=== PATIENT | female | born 1945 | race African-American/Black ===

== ENCOUNTER 2018-10-08 01:11 | Inpatient (IN) ==
[2018-10-08] MEDS ORDERED: ONDANSETRON 4 MG/2 ML VIAL IV ONE (01:45)
[2018-10-08] MEDS ORDERED: SODIUM CHLORIDE 0.9% 1,000 ML IV STA (01:45)
[2018-10-08] MEDS ORDERED: ALBUTEROL/IPRATROPIUM 3 ML NEB RESP TX STA (01:45)
[2018-10-08] MEDS ORDERED: ALBUTEROL 2.5 MG/3 ML NEB RESP TX STA (01:45)
[2018-10-08] MEDS ORDERED: methylPREDNISolone SOD SUC 125 MG/2 ML VIAL IV STA (01:45)
[2018-10-08 01:55] LABS: Basophils % 0.4 % (0.0-0.8); Eosinophils # 0.1 10*3/uL (0.0-0.87); Eosinophils % 1.3 % (0.00-10.9); Hematocrit 43.1 VOL% (35.7-47.0); Hemoglobin 13.2 GM/DL (12.0-16.0); Immature Granulocytes % 0.2 %; Immature Granulocytes Absolute 0.01 #; Lymphocytes # 0.9 10*3/uL (1.4-4.0); Lymphocytes % 18.8 % (21.3-54.2); Mean Corpuscular HGB Conc 30.6 GM/DL (32-36); Mean Corpuscular Volume 86.7 FL (87-102); Mean Platelet Volume 10.2 FL (9.6-12.0); Monocytes % 13.4 % (1.7-12.7); Neutrophils % 65.9 % (38.7-73.9); Platelet Count 153 T/CUMM (130-400); Red Blood Count 4.97 MC/CUMM (3.8-5.5); Red Cell Distribution Width 12.5 % (9.3-17.3); White Blood Count 4.8 T/CUMM (4-12)
[2018-10-08 01:57] LABS: INR 0.9
[2018-10-08 02:20] LABS: Alanine Aminotransferase 23 U/L (13-56); Albumin 3.9 G/DL (3.4-5.0); Alkaline Phosphatase 67 U/L (45-117); Aspartate Amino Transferase 36 U/L (0-37); Bilirubin,Total < 0.39 MG/DL (0.2-1.0); Blood Urea Nitrogen 11 MG/DL (7-18); Calcium 8.5 MG/DL (8.5-10.1); Glucose 161 MG/DL (74-106); Osmolality,Calculated 274.8 MOS/KG (273-304); Total Protein 8.1 G/DL (6.4-8.3)
[2018-10-08 02:23] LABS: Troponin I 0.182 NG/ML (0.00-0.045)
[2018-10-08] MEDS ORDERED: ONDANSETRON 4 MG/2 ML VIAL IV PRN (02:39)
[2018-10-08] MEDS ORDERED: IBUPROFEN 600 MG TABLET PO PRN (02:39)
[2018-10-08] MEDS ORDERED: cefTRIAXone 1,000 MG in SODIUM CHLORIDE 0.9% 100 ML IV STA (02:39)
[2018-10-08] MEDS ORDERED: ACETAMINOPHEN 325 MG TABLET PO PRN (02:39)
[2018-10-08] MEDS ORDERED: PROMETHAZINE 25 MG/1 ML VIAL IM PRN (02:39)
[2018-10-08] MEDS ORDERED: AZITHROMYCIN INJ 500 MG in SODIUM CHLORIDE 0.9% 250 ML IV STA (02:39)
[2018-10-08] MEDS ORDERED: GLUCAGON 1 MG VIAL IM PRN (02:45)
[2018-10-08] MEDS ORDERED: DEXTROSE 50% 25 GM/50 ML SYRINGE IV PRN (02:45)
[2018-10-08] MEDS ORDERED: ASPIRIN 325 MG TABLET PO STA (02:49)
[2018-10-08] MEDS: ALBUTEROL/IPRATROPIUM 3 ML NEB RESP TX SCH ×6 (03:00→23:01)
[2018-10-08 05:15] LABS: Basophils % 0.2 % (0.0-0.8); Eosinophils % 0.2 % (0.00-10.9); Hematocrit 37.8 VOL% (35.7-47.0); Hemoglobin 11.7 GM/DL (12.0-16.0); Immature Granulocytes % 0.4 %; Immature Granulocytes Absolute 0.02 #; Lymphocytes # 0.3 10*3/uL (1.4-4.0); Lymphocytes % 5.1 % (21.3-54.2); Mean Corpuscular Volume 86.9 FL (87-102); Mean Platelet Volume 10.2 FL (9.6-12.0); Monocytes % 3.5 % (1.7-12.7); Neutrophils % 90.6 % (38.7-73.9); Platelet Count 141 T/CUMM (130-400); Red Blood Count 4.35 MC/CUMM (3.8-5.5); Red Cell Distribution Width 12.5 % (9.3-17.3); White Blood Count 5.7 T/CUMM (4-12)
[2018-10-08 05:27] LABS: Albumin 3.2 G/DL (3.4-5.0); Bilirubin,Total 0.6 MG/DL (0.2-1.0); Calcium 8.3 MG/DL (8.5-10.1); Osmolality,Calculated 283.5 MOS/KG (273-304); Total Protein 6.7 G/DL (6.4-8.3)
[2018-10-08] MEDS: cefTRIAXone 1,000 MG in SYRINGE 1 EACH IV SCH (05:29)
[2018-10-08] MEDS: SODIUM CHLORIDE 0.9% 1,000 ML IV SCH ×3 (05:34→19:33)
[2018-10-08 06:08] LABS: Anisocytosis Slight; Band Neutrophils 2 % (0-10); Eosinophils 1 % (0-10); Lymphocytes 9 % (20-55); Macrocytosis Slight; Ovalocytes 1+; Platelet Estimate Decreased; Segmented Neutrophils 86 % (50-85); Total Cells Counted 100
[2018-10-08] MEDS: INSULIN REGULAR 100 UNIT/ML SUBCUT SCH ×3 (06:18→17:55)
[2018-10-08] MEDS: PANTOPRAZOLE 40 MG TABLET PO SCH (08:34)
[2018-10-08] MEDS: DOCUSATE SODIUM 100 MG CAPSULE PO SCH ×2 (08:34→21:03)
[2018-10-08] MEDS: methylPREDNISolone SOD SUC 40 MG/1 ML VIAL IV SCH ×3 (08:35→20:59)
[2018-10-08] MEDS: ENOXAPARIN 40 MG/0.4 ML SYRINGE SUBCUT SCH (08:37)
[2018-10-08] MEDS: BUDESONIDE 0.25 MG/2 ML NEB RESP TX SCH (19:50)
[2018-10-08] MEDS: INSULIN GLARGINE 100 UNIT/ML SUBCUT SCH (21:03)
[2018-10-09] MEDS: INSULIN REGULAR 100 UNIT/ML SUBCUT SCH ×4 (00:31→18:11)
[2018-10-09] MEDS: methylPREDNISolone SOD SUC 40 MG/1 ML VIAL IV SCH ×4 (01:59→20:54)
[2018-10-09] MEDS: AZITHROMYCIN INJ 250 MG in SODIUM CHLORIDE 0.9% 250 ML IV SCH (02:02)
[2018-10-09] MEDS: ALBUTEROL/IPRATROPIUM 3 ML NEB RESP TX SCH ×6 (02:49→23:20)
[2018-10-09] MEDS: cefTRIAXone 1,000 MG in SYRINGE 1 EACH IV SCH (04:20)
[2018-10-09 07:31] LABS: Calcium 8.3 MG/DL (8.5-10.1); Osmolality,Calculated 289.5 MOS/KG (273-304)
[2018-10-09] MEDS: BUDESONIDE 0.25 MG/2 ML NEB RESP TX SCH ×2 (07:38→18:48)
[2018-10-09] MEDS: PANTOPRAZOLE 40 MG TABLET PO SCH (08:57)
[2018-10-09] MEDS: ENOXAPARIN 40 MG/0.4 ML SYRINGE SUBCUT SCH (08:57)
[2018-10-09] MEDS: ASPIRIN 325 MG TABLET PO SCH (08:57)
[2018-10-09] MEDS: DOCUSATE SODIUM 100 MG CAPSULE PO SCH ×2 (08:57→20:54)
[2018-10-09] MEDS: SODIUM CHLORIDE 0.9% 1,000 ML IV SCH (10:08)
[2018-10-09] MEDS: INSULIN GLARGINE 100 UNIT/ML SUBCUT SCH ×2 (10:09→20:54)
[2018-10-09] MEDS ORDERED: FUROSEMIDE 40 MG/4 ML VIAL IV ONE (14:22)
[2018-10-10] MEDS: INSULIN REGULAR 100 UNIT/ML SUBCUT SCH ×4 (01:14→18:15)
[2018-10-10] MEDS: methylPREDNISolone SOD SUC 40 MG/1 ML VIAL IV SCH ×4 (01:14→19:45)
[2018-10-10] MEDS: ALBUTEROL/IPRATROPIUM 3 ML NEB RESP TX SCH ×6 (03:19→23:27)
[2018-10-10] MEDS: cefTRIAXone 1,000 MG in SYRINGE 1 EACH IV SCH (04:18)
[2018-10-10] MEDS: AZITHROMYCIN INJ 250 MG in SODIUM CHLORIDE 0.9% 250 ML IV SCH (04:21)
[2018-10-10] MEDS: BUDESONIDE 0.25 MG/2 ML NEB RESP TX SCH ×2 (07:08→19:06)
[2018-10-10] MEDS: DOCUSATE SODIUM 100 MG CAPSULE PO SCH ×2 (09:30→22:20)
[2018-10-10] MEDS: PANTOPRAZOLE 40 MG TABLET PO SCH (09:30)
[2018-10-10] MEDS: ASPIRIN 325 MG TABLET PO SCH (09:30)
[2018-10-10] MEDS: INSULIN GLARGINE 100 UNIT/ML SUBCUT SCH ×2 (09:31→22:20)
[2018-10-10] MEDS: ENOXAPARIN 40 MG/0.4 ML SYRINGE SUBCUT SCH (09:31)
[2018-10-10 16:45] LABS: Calcium 8.6 MG/DL (8.5-10.1); Osmolality,Calculated 290.5 MOS/KG (273-304)
[2018-10-10] MEDS ORDERED: FUROSEMIDE 20 MG/2 ML VIAL IV ONE (17:13)
[2018-10-11] MEDS: INSULIN REGULAR 100 UNIT/ML SUBCUT SCH ×2 (00:05→05:36)
[2018-10-11] MEDS: methylPREDNISolone SOD SUC 40 MG/1 ML VIAL IV SCH ×2 (02:00→08:57)
[2018-10-11] MEDS: AZITHROMYCIN INJ 250 MG in SODIUM CHLORIDE 0.9% 250 ML IV SCH (02:01)
[2018-10-11 03:03] LABS: Calcium 9.2 MG/DL (8.5-10.1); Osmolality,Calculated 290.4 MOS/KG (273-304)
[2018-10-11] MEDS: cefTRIAXone 1,000 MG in SYRINGE 1 EACH IV SCH (03:06)
[2018-10-11] MEDS: ALBUTEROL/IPRATROPIUM 3 ML NEB RESP TX SCH ×2 (03:11→08:03)
[2018-10-11] MEDS: BUDESONIDE 0.25 MG/2 ML NEB RESP TX SCH (08:03)
[2018-10-11 08:21] VITALS: BP 139/72
[2018-10-11] MEDS: PANTOPRAZOLE 40 MG TABLET PO SCH (08:56)
[2018-10-11] MEDS: DOCUSATE SODIUM 100 MG CAPSULE PO SCH (08:56)
[2018-10-11] MEDS: ASPIRIN 325 MG TABLET PO SCH (08:56)
[2018-10-11] MEDS: INSULIN GLARGINE 100 UNIT/ML SUBCUT SCH (08:57)
[2018-10-11] MEDS: ENOXAPARIN 40 MG/0.4 ML SYRINGE SUBCUT SCH (08:57)
== END 2018-10-11 11:08 | disposition home health service (06) | DRG 202 ==
LOC: N.ED 01:11 → N.EDINP 02:39 → N.TELEN 03:07
PROVIDERS: ADMIT Internal Medicine; ATTEND Internal Medicine

== ENCOUNTER 2020-03-22 16:47 | Inpatient (IN) ==
[2020-03-22] MEDS ORDERED: FUROSEMIDE 40 MG/4 ML VIAL IV STA (17:30)
[2020-03-22] MEDS ORDERED: ALBUTEROL/IPRATROPIUM 3 ML NEB RESP TX STA (17:31)
[2020-03-22] MEDS ORDERED: methylPREDNISolone SOD SUC 125 MG/2 ML VIAL IV STA (17:31)
[2020-03-22 17:33] LABS: INR 1.3; PT Patient Result 13.4 SECS (9.8-11.9)
[2020-03-22 17:34] LABS: Basophils % 0.8 % (0.0-0.8); Eosinophils % 0.8 % (0.00-10.9); Hematocrit 45.7 VOL% (35.7-47.0); Hemoglobin 14.4 GM/DL (12.0-16.0); Immature Granulocytes % 0.3 %; Immature Granulocytes Absolute 0.01 #; Lymphocytes # 1.1 10*3/uL (1.4-4.0); Lymphocytes % 29.4 % (21.3-54.2); Mean Corpuscular HGB Conc 31.5 GM/DL (32-36); Mean Corpuscular Volume 82.9 FL (87-102); Mean Platelet Volume 10.8 FL (9.6-12.0); Monocytes % 10.9 % (1.7-12.7); Neutrophils % 57.8 % (38.7-73.9); Platelet Count 174 T/CUMM (130-400); Red Blood Count 5.51 MC/CUMM (3.8-5.5); Red Cell Distribution Width 16.7 % (9.3-17.3); White Blood Count 3.6 T/CUMM (4-12)
[2020-03-22 17:45] LABS: Albumin 3.8 G/DL (3.4-5.0); Calcium 9.4 MG/DL (8.5-10.1); Osmolality,Calculated 285.3 MOS/KG (273-304); Total Protein 7.4 G/DL (6.4-8.3)
[2020-03-22] MEDS ORDERED: ASPIRIN EC 325 MG TABLET PO STA (18:47)
[2020-03-22] MEDS ORDERED: ONDANSETRON 4 MG/2 ML VIAL IV PRN (18:49)
[2020-03-22] MEDS ORDERED: ACETAMINOPHEN 325 MG TABLET PO PRN (18:49)
[2020-03-22 19:09] LABS: Ferritin 87.9 ng/ml (8-252)
[2020-03-22] MEDS ORDERED: ASPIRIN 325 MG TABLET ONE (19:22)
[2020-03-22] MEDS: FUROSEMIDE 40 MG/4 ML VIAL IV SCH (21:29)
[2020-03-22] MEDS: methylPREDNISolone SOD SUC 40 MG/1 ML VIAL IV SCH (21:29)
[2020-03-22] MEDS: ALBUTEROL 1.25 MG/3 ML NEB RESP TX SCH (21:33)
[2020-03-22] MEDS: ASPIRIN CHEW 81 MG TABLET PO SCH (21:34)
[2020-03-22] MEDS ORDERED: PNEUMOCOCCAL VACCINE (13 VALENT) 0.5 ML SYRINGE IM ONE (21:53)
[2020-03-23 00:55] LABS: Albumin 3.6 G/DL (3.4-5.0); Bilirubin,Total 2.3 MG/DL (0.2-1.0); Calcium 9.3 MG/DL (8.5-10.1); Osmolality,Calculated 287.1 MOS/KG (273-304); Total Protein 7.2 G/DL (6.4-8.3)
[2020-03-23 01:02] LABS: Basophils % 0.4 % (0.0-0.8); Hematocrit 44.6 VOL% (35.7-47.0); Hemoglobin 14.3 GM/DL (12.0-16.0); Lymphocytes # 0.3 10*3/uL (1.4-4.0); Lymphocytes % 13.1 % (21.3-54.2); Mean Corpuscular HGB Conc 32.1 GM/DL (32-36); Mean Corpuscular Volume 83.1 FL (87-102); Mean Platelet Volume 10.2 FL (9.6-12.0); Monocytes % 2.4 % (1.7-12.7); Neutrophils % 84.1 % (38.7-73.9); Platelet Count 144 T/CUMM (130-400); Red Blood Count 5.37 MC/CUMM (3.8-5.5); Red Cell Distribution Width 16.3 % (9.3-17.3); White Blood Count 2.5 T/CUMM (4-12)
[2020-03-23] MEDS: ALBUTEROL 1.25 MG/3 ML NEB RESP TX SCH ×4 (01:36→19:20)
[2020-03-23] MEDS: ALBUTEROL INHALER 18 GM INH SCH ×3 (08:25→12:10)
[2020-03-23] MEDS: methylPREDNISolone SOD SUC 40 MG/1 ML VIAL IV SCH ×3 (08:27→23:07)
[2020-03-23] MEDS: PANTOPRAZOLE 40 MG TABLET PO SCH (08:27)
[2020-03-23] MEDS: FUROSEMIDE 40 MG/4 ML VIAL IV SCH ×2 (08:28→22:00)
[2020-03-23] MEDS: INSULIN REGULAR 100 UNIT/ML SUBCUT SCH ×2 (16:51→22:00)
[2020-03-23] MEDS: QUEtiapine 25 MG TABLET PO SCH (21:59)
[2020-03-23] MEDS: ASPIRIN CHEW 81 MG TABLET PO SCH (22:00)
[2020-03-23] MEDS: POTASSIUM CHLORIDE 20 MEQ TABLET PO SCH (22:00)
[2020-03-23] MEDS: HYDROXYCHLOROQUINE 200 MG TABLET PO SCH (22:01)
[2020-03-23] MEDS: BRIMONIDINE 0.15% OPH SOLN 1 DROP/DROPS BOTTLE BOTH EYES SCH (22:15)
[2020-03-23] MEDS: cefTRIAXone 500 MG in SYRINGE 1 EACH IV SCH (23:05)
[2020-03-24] MEDS: ALBUTEROL 1.25 MG/3 ML NEB RESP TX SCH ×4 (00:13→18:55)
[2020-03-24 06:06] LABS: Hematocrit 43.5 VOL% (35.7-47.0); Immature Granulocytes % 0.2 %; Immature Granulocytes Absolute 0.01 #; Lymphocytes # 0.5 10*3/uL (1.4-4.0); Lymphocytes % 10.4 % (21.3-54.2); Mean Corpuscular HGB Conc 32.2 GM/DL (32-36); Mean Corpuscular Volume 82.2 FL (87-102); Mean Platelet Volume 11.3 FL (9.6-12.0); Monocytes % 3.5 % (1.7-12.7); Neutrophils % 85.9 % (38.7-73.9); Platelet Count 182 T/CUMM (130-400); Red Blood Count 5.29 MC/CUMM (3.8-5.5); Red Cell Distribution Width 15.9 % (9.3-17.3); White Blood Count 5.2 T/CUMM (4-12)
[2020-03-24 06:12] LABS: Osmolality,Calculated 287.3 MOS/KG (273-304); Risk Ratio 3.63
[2020-03-24] MEDS: methylPREDNISolone SOD SUC 40 MG/1 ML VIAL IV SCH ×3 (06:22→23:36)
[2020-03-24] MEDS: PANTOPRAZOLE 40 MG TABLET PO SCH (09:11)
[2020-03-24] MEDS: BRIMONIDINE 0.15% OPH SOLN 1 DROP/DROPS BOTTLE BOTH EYES SCH ×3 (09:11→21:12)
[2020-03-24] MEDS: POTASSIUM CHLORIDE 20 MEQ TABLET PO SCH ×2 (09:11→21:07)
[2020-03-24] MEDS: HYDROXYCHLOROQUINE 200 MG TABLET PO SCH ×2 (09:11→21:07)
[2020-03-24] MEDS: FUROSEMIDE 40 MG/4 ML VIAL IV SCH (09:12)
[2020-03-24] MEDS: INSULIN REGULAR 100 UNIT/ML SUBCUT SCH ×4 (09:12→21:40)
[2020-03-24] MEDS ORDERED: INFLUENZA VIRUS VACCINE 0.5 ML SYRINGE IM ONE (11:45)
[2020-03-24] MEDS ORDERED: MAGNESIUM SULF RIDER 2 GM in PREMIX 1 EACH IV ONE (11:49)
[2020-03-24] MEDS ORDERED: VALSARTAN 80 MG TABLET PO SCH ×3 (12:00)
[2020-03-24] MEDS: SPIRONOLACTONE 25 MG TABLET PO SCH (12:59)
[2020-03-24] MEDS ORDERED: GLUCAGON 1 MG VIAL IM PRN (13:53)
[2020-03-24] MEDS ORDERED: DEXTROSE 50% 25 GM/50 ML VIAL IV PRN (13:53)
[2020-03-24] MEDS: QUEtiapine 25 MG TABLET PO SCH (21:07)
[2020-03-24] MEDS: ATORVASTATIN 40 MG TABLET PO SCH (21:07)
[2020-03-24] MEDS: INSULIN GLARGINE 100 UNIT/ML SUBCUT SCH (23:36)
[2020-03-24] MEDS: cefTRIAXone 500 MG in SYRINGE 1 EACH IV SCH (23:36)
[2020-03-25] MEDS: ALBUTEROL 1.25 MG/3 ML NEB RESP TX SCH ×4 (01:33→20:00)
[2020-03-25 05:13] LABS: Hematocrit 39.8 VOL% (35.7-47.0); Hemoglobin 13.1 GM/DL (12.0-16.0); Immature Granulocytes % 0.5 %; Immature Granulocytes Absolute 0.03 #; Lymphocytes # 0.4 10*3/uL (1.4-4.0); Lymphocytes % 5.6 % (21.3-54.2); Mean Corpuscular HGB Conc 32.9 GM/DL (32-36); Mean Corpuscular Volume 81.4 FL (87-102); Mean Platelet Volume 11.7 FL (9.6-12.0); Monocytes % 2.4 % (1.7-12.7); Neutrophils % 91.5 % (38.7-73.9); Platelet Count 159 T/CUMM (130-400); Red Blood Count 4.89 MC/CUMM (3.8-5.5); Red Cell Distribution Width 15.9 % (9.3-17.3); White Blood Count 6.6 T/CUMM (4-12)
[2020-03-25 05:39] LABS: Calcium 8.8 MG/DL (8.5-10.1); Lymphocytes 3 % (20-55); Microcytosis Slight; Osmolality,Calculated 285.5 MOS/KG (273-304); Platelet Estimate Normal; Segmented Neutrophils 97 % (50-85); Total Cells Counted 100
[2020-03-25] MEDS: OLMESARTAN 5 MG TABLET PO SCH (09:07)
[2020-03-25] MEDS: MULTIVITAMIN (CENTRUM) TABLET PO SCH (09:08)
[2020-03-25] MEDS: PANTOPRAZOLE 40 MG TABLET PO SCH (09:08)
[2020-03-25] MEDS: HYDROXYCHLOROQUINE 200 MG TABLET PO SCH ×2 (09:08→21:25)
[2020-03-25] MEDS: SPIRONOLACTONE 25 MG TABLET PO SCH (09:08)
[2020-03-25] MEDS: POTASSIUM CHLORIDE 20 MEQ TABLET PO SCH ×2 (09:08→21:25)
[2020-03-25] MEDS: FUROSEMIDE 40 MG TABLET PO SCH (09:08)
[2020-03-25] MEDS: methylPREDNISolone SOD SUC 40 MG/1 ML VIAL IV SCH ×2 (09:08→21:29)
[2020-03-25] MEDS: BRIMONIDINE 0.15% OPH SOLN 1 DROP/DROPS BOTTLE BOTH EYES SCH ×3 (09:09→21:32)
[2020-03-25] MEDS: ASPIRIN CHEW 81 MG TABLET PO SCH (09:09)
[2020-03-25] MEDS: INSULIN REGULAR 100 UNIT/ML SUBCUT SCH ×4 (09:15→21:25)
[2020-03-25] MEDS ORDERED: FUROSEMIDE 40 MG/4 ML VIAL IV ONE (11:19)
[2020-03-25] MEDS: INSULIN GLARGINE 100 UNIT/ML SUBCUT SCH (21:24)
[2020-03-25] MEDS: cefTRIAXone 500 MG in SYRINGE 1 EACH IV SCH (21:25)
[2020-03-25] MEDS: QUEtiapine 25 MG TABLET PO SCH (21:26)
[2020-03-25] MEDS: ATORVASTATIN 40 MG TABLET PO SCH (21:26)
[2020-03-26] MEDS: ALBUTEROL 1.25 MG/3 ML NEB RESP TX SCH ×3 (01:05→13:04)
[2020-03-26 06:23] LABS: Hematocrit 42.3 VOL% (35.7-47.0); Hemoglobin 13.5 GM/DL (12.0-16.0); Immature Granulocytes % 0.3 %; Immature Granulocytes Absolute 0.02 #; Lymphocytes # 0.4 10*3/uL (1.4-4.0); Lymphocytes % 5.9 % (21.3-54.2); Mean Corpuscular HGB Conc 31.9 GM/DL (32-36); Mean Corpuscular Volume 83.1 FL (87-102); Mean Platelet Volume 11.4 FL (9.6-12.0); Neutrophils % 90.8 % (38.7-73.9); Platelet Count 172 T/CUMM (130-400); Red Blood Count 5.09 MC/CUMM (3.8-5.5); Red Cell Distribution Width 15.9 % (9.3-17.3); White Blood Count 6.3 T/CUMM (4-12)
[2020-03-26 06:39] LABS: Calcium 8.9 MG/DL (8.5-10.1); Osmolality,Calculated 286.7 MOS/KG (273-304)
[2020-03-26 06:51] LABS: Band Neutrophils 1 % (0-10); Hypochromasia 1+; Lymphocytes 2 % (20-55); Microcytosis 1+; Ovalocytes Slight; Platelet Estimate Adequate; Segmented Neutrophils 94 % (50-85); Total Cells Counted 100
[2020-03-26] MEDS ORDERED: INSULIN GLARGINE 100 UNIT/ML SUBCUT SCH (09:00)
[2020-03-26] MEDS: OLMESARTAN 5 MG TABLET PO SCH (09:45)
[2020-03-26] MEDS: ASPIRIN CHEW 81 MG TABLET PO SCH (09:46)
[2020-03-26] MEDS: POTASSIUM CHLORIDE 20 MEQ TABLET PO SCH (09:46)
[2020-03-26] MEDS: SPIRONOLACTONE 25 MG TABLET PO SCH (09:46)
[2020-03-26] MEDS: FUROSEMIDE 40 MG TABLET PO SCH (09:46)
[2020-03-26] MEDS: PANTOPRAZOLE 40 MG TABLET PO SCH (09:46)
[2020-03-26] MEDS: MULTIVITAMIN (CENTRUM) TABLET PO SCH (09:46)
[2020-03-26] MEDS: HYDROXYCHLOROQUINE 200 MG TABLET PO SCH (09:46)
[2020-03-26] MEDS: BRIMONIDINE 0.15% OPH SOLN 1 DROP/DROPS BOTTLE BOTH EYES SCH (09:47)
[2020-03-26] MEDS: methylPREDNISolone SOD SUC 40 MG/1 ML VIAL IV SCH (09:48)
[2020-03-26] MEDS: INSULIN REGULAR 100 UNIT/ML SUBCUT SCH ×2 (09:48→12:35)
[2020-03-26 12:42] VITALS: BP 111/62
== END 2020-03-26 14:50 | disposition home health service (06) | DRG 291 ==
LOC: N.ED 16:47 → N.EDINP 18:47 → N.TELES 19:57
PROVIDERS: ADMIT Internal Medicine; ATTEND Internal Medicine

== ENCOUNTER 2020-04-09 11:56 | Observation (INO) ==
[2020-04-09 12:42] LABS: Basophils % 0.6 % (0.0-0.8); Eosinophils % 0.3 % (0.00-10.9); Hematocrit 43.3 VOL% (35.7-47.0); Hemoglobin 13.7 GM/DL (12.0-16.0); Immature Granulocytes % 0.3 %; Immature Granulocytes Absolute 0.01 #; Lymphocytes # 0.8 10*3/uL (1.4-4.0); Lymphocytes % 25.3 % (21.3-54.2); Mean Corpuscular HGB Conc 31.6 GM/DL (32-36); Mean Corpuscular Volume 84.2 FL (87-102); Monocytes % 6.9 % (1.7-12.7); Neutrophils % 66.6 % (38.7-73.9); Platelet Count 148 T/CUMM (130-400); Red Blood Count 5.14 MC/CUMM (3.8-5.5); Red Cell Distribution Width 15.4 % (9.3-17.3); White Blood Count 3.3 T/CUMM (4-12)
[2020-04-09 12:54] LABS: Albumin 3.8 G/DL (3.4-5.0); Bilirubin,Total 0.7 MG/DL (0.2-1.0); Calcium 9.2 MG/DL (8.5-10.1); Osmolality,Calculated 284.3 MOS/KG (273-304); Total Protein 7.4 G/DL (6.4-8.3)
[2020-04-09 13:07] LABS: Bilirubin,Urine Negative (Negative); Blood, Urine Negative (Negative); Glucose,Urine (UA) Negative (Negative); Hyaline Casts,Urine 35 /LPF (0-3); Ketones,Urine Negative (Negative); Mucus,Urine Occasional /LPF (Occasional); Nitrite,Urine Negative (Negative); Protein,Urine 100 MG/DL; RBC,Urine 2 /HPF (0-4); Squamous Epithelial Cell,Urine Occasional /HPF (0-10); Urine Appearance Slightly Hazy (Clear); Urine Color Yellow (Yellow); Urine Specific Gravity 1.013 (1.001-1.035); Urine Urobilinogen < 2.0 EU/DL (0.2-1.0); WBC,Urine 3 /HPF (0-6)
[2020-04-09] MEDS ORDERED: GLUCAGON 1 MG VIAL IM PRN (13:49)
[2020-04-09] MEDS ORDERED: DEXTROSE 50% 25 GM/50 ML VIAL IV PRN (13:49)
[2020-04-09] MEDS ORDERED: ONDANSETRON 4 MG/2 ML VIAL IV PRN (13:49)
[2020-04-09] MEDS: INSULIN REGULAR 100 UNIT/ML SUBCUT SCH ×2 (16:32→21:01)
[2020-04-09] MEDS: DOCUSATE SODIUM 100 MG CAPSULE PO SCH (21:00)
[2020-04-10] MEDS: MECLIZINE 25 MG TABLET PO SCH ×2 (01:15→21:06)
[2020-04-10] MEDS: SODIUM CHLORIDE 0.45% 1,000 ML IV SCH ×2 (01:16→17:29)
[2020-04-10 05:46] LABS: Basophils % 0.6 % (0.0-0.8); Eosinophils % 0.9 % (0.00-10.9); Hematocrit 37.3 VOL% (35.7-47.0); Hemoglobin 12.2 GM/DL (12.0-16.0); Immature Granulocytes % 0.3 %; Immature Granulocytes Absolute 0.01 #; Lymphocytes # 1.4 10*3/uL (1.4-4.0); Lymphocytes % 44.8 % (21.3-54.2); Mean Corpuscular HGB Conc 32.7 GM/DL (32-36); Mean Corpuscular Volume 82.7 FL (87-102); Mean Platelet Volume 12.2 FL (9.6-12.0); Monocytes % 7.8 % (1.7-12.7); Neutrophils % 45.6 % (38.7-73.9); Platelet Count 133 T/CUMM (130-400); Red Blood Count 4.51 MC/CUMM (3.8-5.5); Red Cell Distribution Width 15.3 % (9.3-17.3); White Blood Count 3.2 T/CUMM (4-12)
[2020-04-10 06:05] LABS: Calcium 8.7 MG/DL (8.5-10.1)
[2020-04-10 06:09] LABS: Troponin I 0.266 NG/ML (0.00-0.045)
[2020-04-10] MEDS: BRIMONIDINE 0.15% OPH SOLN 1 DROP/DROPS BOTTLE BOTH EYES SCH (08:37)
[2020-04-10] MEDS: PANTOPRAZOLE 40 MG TABLET PO SCH (08:37)
[2020-04-10] MEDS: SPIRONOLACTONE 25 MG TABLET PO SCH (08:37)
[2020-04-10] MEDS: POTASSIUM CHLORIDE 20 MEQ TABLET PO SCH ×2 (08:37→21:06)
[2020-04-10] MEDS: HYDROXYCHLOROQUINE 200 MG TABLET PO SCH ×2 (08:37→21:05)
[2020-04-10] MEDS: FUROSEMIDE 40 MG/4 ML VIAL IV SCH (08:38)
[2020-04-10] MEDS: INSULIN REGULAR 100 UNIT/ML SUBCUT SCH ×3 (08:38→21:04)
[2020-04-10] MEDS: ASPIRIN CHEW 81 MG TABLET PO SCH (08:38)
[2020-04-10] MEDS: DOCUSATE SODIUM 100 MG CAPSULE PO SCH ×2 (08:38→21:05)
[2020-04-10] MEDS: ACETAMINOPHEN 325 MG TABLET PO PRN (15:39)
[2020-04-10] MEDS: buPROPion 75 MG TABLET PO SCH (21:05)
[2020-04-10] MEDS: POTASSIUM CHLORIDE 20 MEQ TABLET PO PRN (21:06)
[2020-04-11] MEDS: POTASSIUM CHLORIDE 20 MEQ TABLET PO PRN ×3 (00:43→05:02)
[2020-04-11] MEDS: SODIUM CHLORIDE 0.45% 1,000 ML IV SCH (05:57)
[2020-04-11 06:33] LABS: Calcium 8.8 MG/DL (8.5-10.1); Osmolality,Calculated 288.1 MOS/KG (273-304)
[2020-04-11 06:40] LABS: Basophils % 0.6 % (0.0-0.8); Eosinophils % 1.3 % (0.00-10.9); Hematocrit 38.9 VOL% (35.7-47.0); Hemoglobin 12.4 GM/DL (12.0-16.0); Immature Granulocytes % 0.3 %; Immature Granulocytes Absolute 0.01 #; Lymphocytes % 30.4 % (21.3-54.2); Mean Corpuscular HGB Conc 31.9 GM/DL (32-36); Mean Corpuscular Volume 84.4 FL (87-102); Mean Platelet Volume 11.4 FL (9.6-12.0); Monocytes % 11.4 % (1.7-12.7); Platelet Count 108 T/CUMM (130-400); Red Blood Count 4.61 MC/CUMM (3.8-5.5); Red Cell Distribution Width 15.5 % (9.3-17.3); White Blood Count 3.2 T/CUMM (4-12)
[2020-04-11] MEDS: FUROSEMIDE 40 MG/4 ML VIAL IV SCH (08:33)
[2020-04-11] MEDS: INSULIN REGULAR 100 UNIT/ML SUBCUT SCH ×4 (08:33→20:48)
[2020-04-11] MEDS: SPIRONOLACTONE 25 MG TABLET PO SCH (08:34)
[2020-04-11] MEDS: OLMESARTAN 5 MG TABLET PO SCH (08:34)
[2020-04-11] MEDS: ASPIRIN CHEW 81 MG TABLET PO SCH (08:34)
[2020-04-11] MEDS: POTASSIUM CHLORIDE 20 MEQ TABLET PO SCH ×2 (08:34→20:49)
[2020-04-11] MEDS: HYDROXYCHLOROQUINE 200 MG TABLET PO SCH ×2 (08:34→20:48)
[2020-04-11] MEDS: PANTOPRAZOLE 40 MG TABLET PO SCH (08:34)
[2020-04-11] MEDS: DOCUSATE SODIUM 100 MG CAPSULE PO SCH ×2 (08:34→20:50)
[2020-04-11] MEDS: buPROPion 75 MG TABLET PO SCH ×2 (08:35→20:49)
[2020-04-11] MEDS: BRIMONIDINE 0.15% OPH SOLN 1 DROP/DROPS BOTTLE BOTH EYES SCH (08:35)
[2020-04-11] MEDS: MECLIZINE 25 MG TABLET PO SCH (20:49)
[2020-04-11] MEDS: ROSUVASTATIN 20 MG TABLET PO SCH (20:49)
[2020-04-12 07:13] LABS: Eosinophils % 1.3 % (0.00-10.9); Hematocrit 36.8 VOL% (35.7-47.0); Immature Granulocytes % 0.3 %; Immature Granulocytes Absolute 0.01 #; Lymphocytes # 1.3 10*3/uL (1.4-4.0); Lymphocytes % 40.7 % (21.3-54.2); Mean Corpuscular HGB Conc 32.6 GM/DL (32-36); Mean Corpuscular Volume 83.1 FL (87-102); Mean Platelet Volume 11.8 FL (9.6-12.0); Monocytes % 11.9 % (1.7-12.7); Neutrophils % 44.8 % (38.7-73.9); Platelet Count 102 T/CUMM (130-400); Red Blood Count 4.43 MC/CUMM (3.8-5.5); Red Cell Distribution Width 15.4 % (9.3-17.3); White Blood Count 3.1 T/CUMM (4-12)
[2020-04-12 07:20] LABS: Calcium 9.1 MG/DL (8.5-10.1); Osmolality,Calculated 284.3 MOS/KG (273-304)
[2020-04-12] MEDS: INSULIN REGULAR 100 UNIT/ML SUBCUT SCH ×4 (08:56→21:50)
[2020-04-12] MEDS: ASPIRIN CHEW 81 MG TABLET PO SCH (10:05)
[2020-04-12] MEDS: PANTOPRAZOLE 40 MG TABLET PO SCH (10:05)
[2020-04-12] MEDS: buPROPion 75 MG TABLET PO SCH ×2 (10:05→21:49)
[2020-04-12] MEDS: HYDROXYCHLOROQUINE 200 MG TABLET PO SCH ×2 (10:05→21:49)
[2020-04-12] MEDS: DOCUSATE SODIUM 100 MG CAPSULE PO SCH ×2 (10:05→21:49)
[2020-04-12] MEDS: OLMESARTAN 5 MG TABLET PO SCH (10:05)
[2020-04-12] MEDS: FUROSEMIDE 40 MG TABLET PO SCH (10:05)
[2020-04-12] MEDS: POTASSIUM CHLORIDE 20 MEQ TABLET PO SCH ×2 (10:06→21:49)
[2020-04-12] MEDS: BRIMONIDINE 0.15% OPH SOLN 1 DROP/DROPS BOTTLE BOTH EYES SCH (10:06)
[2020-04-12] MEDS: SPIRONOLACTONE 25 MG TABLET PO SCH (10:06)
[2020-04-12 10:13] LABS: Band Neutrophils 2 % (0-10); Lymphocytes 33 % (20-55); Segmented Neutrophils 56 % (50-85); Total Cells Counted 100
[2020-04-12 10:14] LABS: Hypochromasia 2+; Ovalocytes 1+; Platelet Estimate Adequate; Polychromasia Slight; Schistocytes Few
[2020-04-12] MEDS: ACETAMINOPHEN 325 MG TABLET PO PRN ×2 (10:25→16:56)
[2020-04-12] MEDS: MECLIZINE 25 MG TABLET PO SCH (21:49)
[2020-04-12] MEDS: ROSUVASTATIN 20 MG TABLET PO SCH (21:50)
[2020-04-13 06:02] LABS: Eosinophils # 0.1 10*3/uL (0.0-0.87); Eosinophils % 1.9 % (0.00-10.9); Hemoglobin 11.9 GM/DL (12.0-16.0); Immature Granulocytes % 0.3 %; Immature Granulocytes Absolute 0.01 #; Lymphocytes # 1.3 10*3/uL (1.4-4.0); Lymphocytes % 42.9 % (21.3-54.2); Mean Corpuscular HGB Conc 32.2 GM/DL (32-36); Mean Corpuscular Volume 83.7 FL (87-102); Mean Platelet Volume 12.3 FL (9.6-12.0); Monocytes % 10.1 % (1.7-12.7); Neutrophils % 43.8 % (38.7-73.9); Platelet Count 108 T/CUMM (130-400); Red Blood Count 4.42 MC/CUMM (3.8-5.5); Red Cell Distribution Width 15.5 % (9.3-17.3); White Blood Count 3.1 T/CUMM (4-12)
[2020-04-13 06:20] LABS: Calcium 9.3 MG/DL (8.5-10.1); Osmolality,Calculated 284.3 MOS/KG (273-304)
[2020-04-13 06:31] LABS: Atypical Lymphocytes Few; Hypochromasia 1+; Lymphocytes 48 % (20-55); Segmented Neutrophils 43 % (50-85); Total Cells Counted 100
[2020-04-13 06:32] LABS: Microcytosis Slight; Ovalocytes Few; Platelet Estimate Decreased
[2020-04-13] MEDS: FUROSEMIDE 40 MG TABLET PO SCH (09:12)
[2020-04-13] MEDS: POTASSIUM CHLORIDE 20 MEQ TABLET PO SCH (09:12)
[2020-04-13] MEDS: DOCUSATE SODIUM 100 MG CAPSULE PO SCH (09:13)
[2020-04-13] MEDS: PANTOPRAZOLE 40 MG TABLET PO SCH (09:13)
[2020-04-13] MEDS: HYDROXYCHLOROQUINE 200 MG TABLET PO SCH (09:13)
[2020-04-13] MEDS: ASPIRIN CHEW 81 MG TABLET PO SCH (09:13)
[2020-04-13] MEDS: buPROPion 75 MG TABLET PO SCH (09:13)
[2020-04-13] MEDS: SPIRONOLACTONE 25 MG TABLET PO SCH (09:14)
[2020-04-13] MEDS: INSULIN REGULAR 100 UNIT/ML SUBCUT SCH ×3 (09:14→17:10)
[2020-04-13] MEDS: OLMESARTAN 5 MG TABLET PO SCH (09:15)
[2020-04-13] MEDS: BRIMONIDINE 0.15% OPH SOLN 1 DROP/DROPS BOTTLE BOTH EYES SCH (09:15)
[2020-04-13 13:22] VITALS: BP 121/86
== END 2020-04-13 17:27 | disposition home health service (06) ==
LOC: N.EDINP 11:56 → N.ED 11:56 → N.TELES 15:28
PROVIDERS: ADMIT Internal Medicine; ATTEND Internal Medicine